=== PATIENT | female | born 1970 | race Caucasian/White ===

== ENCOUNTER 2016-12-30 10:13 | Emergency (ER) | payer MEDICAID ==
[2016-12-30] MEDS ORDERED: ONDANSETRON ODT 4 MG TABLET TL STA (12:24)
[2016-12-30] MEDS ORDERED: SULFAMETH/TRIMETH DS 800/160 MG TABLET PO STA (12:24)
[2016-12-30] MEDS ORDERED: HYDROcod/ACETAM 5/325 MG TABLET PO STA (12:24)
[2016-12-30] MEDS ORDERED: HYDROcod/ACETAM 5/325 MG TABLET ONE (12:30)
[2016-12-30] MEDS ORDERED: ONDANSETRON ODT 4 MG TABLET ONE (12:30)
[2016-12-30] MEDS ORDERED: SULFAMETH/TRIMETH DS 800/160 MG TABLET PO ONE (12:30)
== END 2016-12-30 13:35 | disposition home or self-care (01) ==
DX: N30.00 Acute cystitis without hematuria (principal); R10.33 Periumbilical pain; I10 Essential (primary) hypertension; F17.200 Nicotine dependence, unspecified, uncomplicated
CPT/HCPCS: 51798; 81001; 87086; 99283; A9270; Q0162

== ENCOUNTER 2017-10-21 11:22 | Emergency (ER) | payer MEDICAID ==
[2017-10-21] MEDS ORDERED: DEXAMETHASONE 10 MG/ML VIAL PO STA (12:43)
[2017-10-21] MEDS ORDERED: cefTRIAXone 1 GM VIAL IM STA (12:43)
[2017-10-21] MEDS ORDERED: LIDOCAINE 1% 2 ML VIAL SUBQ ONE (12:43)
[2017-10-21] MEDS ORDERED: CHERRY SYRUP 10 ML UDC PO ONE (12:56)
[2017-10-21] MEDS ORDERED: KETOROLAC 60 MG/2 ML VIAL IM STA (13:07)
--- NOTE | 2017-10-21 13:11 | ED Physician Documentation ---
PD HPI HEENT - Stated complaint Stated Complaint: LT EAR PX/NAUSEA - Chief complaint Chief Complaint: Heent - History obtained from History obtained from: Patient - History of Present Illness Timing - onset: How many weeks ago (3) Timing - duration: Weeks (3) Timing - details: Gradual onset, Still present, Waxing and waning Location: Left ear Improves: Nothing Worsens: Swalllowing Associated symptoms: Fever, Congestion, Rhinorrhea, Facial swelling, Headache, Cough Similar symptoms before: Has not had sx before Recently seen: Not recently seen - Additional information Additional information: 47-year-old female with a lifetime loss of hearing secondary to [place] measles has developed acute ear pain in the left ear. She has been having a respiratory infection for the past 3 weeks with cough and congestion this is suddenly worse over the past several days and she now has significant pain and abnormal hearing in the left ear. She is having a lot of extraneous noises and feels like there is something in her ear. She does feel like the left side of her face is swollen as well. Review of Systems Constitutional: reports: Fever, Chills, Myalgias, Sweats Eyes: denies: Decreased vision Ears: reports: Loss of hearing, Ear pain, Tinnitus/ringing Nose: reports: Rhinorrhea / runny nose, Congestion Throat: reports: Sore throat Cardiac: denies: Chest pain / pressure, Palpitations Respiratory: reports: Dyspnea, Cough GI: denies: Nausea, Vomiting : denies: Dysuria, Frequency Skin: denies: Rash Musculoskeletal: denies: Neck pain, Back pain, Extremity pain Neurologic: denies: Generalized weakness, Focal weakness, Numbness PD PAST MEDICAL HISTORY - Past Medical History Past Medical History: Yes Cardiovascular: Hypertension HEENT: Chronic hearing loss Psych: Depression - Past Surgical History 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 HEENT: Cataracts - Present Medications Home Medications: Ambulatory Orders Medication Instructions Recorded Confirmed Hydrocodone/Acetaminophen [Taylor 1 each PO Q6H PRN #12 tablet 12/30/16 5-325 Tablet] Ondansetron Odt [Zofran] 4 mg TL Q6H PRN #15 tablet 12/30/16 Phenazopyridine [Pyridium] 200 mg PO TID PRN #15 tablet 12/30/16 Sulfamethox/Trimeth 800/160 1 each PO BID #14 tablet 12/30/16 [Bactrim Ds 800/160] Venlafaxine [Effexor] 0 mg PO DAILY 12/30/16 12/30/16 hydroCHLOROthiazide 0 mg PO DAILY 12/30/16 12/30/16 [Hydrochlorothiazide] Azithromycin [Zithromax] 250 mg PO DAILY #6 tablet 10/21/17 HYDROcod/ACETAM 5/325 [Taylor 5/325] 1 - 2 ea PO Q6H PRN #15 tablet 10/21/17 - Allergies Allergies/Adverse Reactions: Allergies Allergy/AdvReac Type Severity Reaction Status Date / Time No Known Drug Allergies Allergy Verified 10/21/17 11:28 - Social History Does the pt smoke?: Yes Smoking Status: Current some day smoker Does the pt drink ETOH?: No Does the pt have substance abuse?: No - Immunizations Immunizations are current?: Yes PD ED PE NORMAL - Vitals Vital signs reviewed: Yes (hypertensive ) - General General: Alert and oriented X 3, Well developed/nourished, Other (The patient appears flush and appears to be in pain with head of housekeeping tone and flat affect. ) - HEENT HEENT: Atraumatic, PERRL, EOMI, Other (The left TM is markedly inflamed with distortion of the landmarks. The right has only slight central erythema over the umbo. pharynx is with swelling and erythema. 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, No motor deficit, No sensory deficit, Normal speech Eye Opening: Spontaneous Motor: Obeys Commands Verbal: Oriented GCS Score: 15 - Psych Psych: Normal mood, Normal affect Results - Vitals Vitals: Vital Signs - 24 hr 10/21/17 10/21/17 11:24 12:59 Temperature 36.3 C L Heart Rate 77 68 Respiratory 18 18 Rate Blood Pressure 187/86 H 188/101 H O2 Saturation 99 99 Oxygen O2 Source Room air PD MEDICAL DECISION MAKING - ED course Complexity details: considered differential, d/w patient ED course: 47-year-old female with existing hearing loss has left otitis media that appears significant and painful. She is administered dexamethasone 10 mg orally Rocephin 1 g IM and Toradol 60 mg IM. Departure - Departure Disposition: Home, Self Care Clinical Impression: Otitis media Qualifiers: Otitis media type: suppurative Chronicity: acute Laterality: bilateral Recurrence: not specified as recurrent Spontaneous tympanic membrane rupture: without spontaneous rupture Qualified Code(s): H66.003 - Acute suppurative otitis media without spontaneous rupture of ear drum, bilateral Condition: Stable Instructions: ED Otitis Media Acute Adult Follow-Up: EDDIE QUINTANILLA MD [Primary Care Provider] - Prescriptions: Azithromycin [Zithromax] 250 mg PO DAILY #6 tablet HYDROcod/ACETAM 5/325 [Taylor 5/325] 1 - 2 ea PO Q6H PRN #15 tablet PRN Reason: Pain
[2017-10-21 13:24] VITALS: BP 160/96
== END 2017-10-21 13:24 | disposition home or self-care (01) ==
LOC: ED 11:22
DX: H66.003 Acute suppurative otitis media without spontaneous rupture of ear drum, bilateral (principal); H91.90 Unspecified hearing loss, unspecified ear; I10 Essential (primary) hypertension; F17.200 Nicotine dependence, unspecified, uncomplicated
CPT/HCPCS: 96372; 99283; A9270

== ENCOUNTER 2017-11-13 12:22 | Emergency (ER) | payer OTHER, MEDICAID ==
[2017-11-13 12:37] VITALS: BP 148/90
[2017-11-13] MEDS ORDERED: LIDOCAINE 2% 10 ML MDV ONE (13:00)
[2017-11-13] MEDS ORDERED: TETANUS/DIPHTHERIA/PERTUSSIS 0.5 ML SYRINGE IM ONE (13:29)
--- NOTE | 2017-11-13 13:34 | ED Physician Documentation ---
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 The incident occurred about 2 hours prior to arrival. She was initially seen in the outpatient clinic , and was sent here for repair of her finger laceration. She is right-hand dominant. She is uncertain of her tetanus status. 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 HEENT: Cataracts - Present Medications Home Medications: Ambulatory Orders Medication Instructions Recorded Confirmed Venlafaxine [Effexor] 0 mg PO DAILY 12/30/16 11/13/17 hydroCHLOROthiazide 0 mg PO DAILY 12/30/16 11/13/17 [Hydrochlorothiazide] Albuterol 2 puffs PO PRN PRN 11/13/17 11/13/17 - Allergies Allergies/Adverse Reactions: Allergies Allergy/AdvReac Type Severity Reaction Status Date / Time No Known Drug Allergies Allergy Verified 11/13/17 12:54 - Social History Does the pt smoke?: Yes Smoking Status: Current every day smoker Does the pt drink ETOH?: No Does the pt have substance abuse?: No - Immunizations Immunizations: TDAP >10years/unknown PD ED PE NORMAL - Vitals Vital signs reviewed: Yes (Initially hypertensive.) - General General: Alert and oriented X 3, Well developed/nourished - HEENT HEENT: Atraumatic - Respiratory Respiratory: No respiratory distress - Derm Derm: No rash - Extremities Extremities: Other (There is a 1.5 cm laceration on the volar aspect of the left index finger, distal to the DIP joint. Distal neurovascular is intact.) - Neuro Neuro: Alert and oriented X 3, No motor deficit, No sensory deficit Results - Vitals Vitals: Vital Signs - 24 hr 11/13/17 12:34 Temperature 36.4 C L Heart Rate 78 Respiratory 18 Rate Blood Pressure 148/90 H O2 Saturation 96 Oxygen O2 Source Room air Procedures - Laceration (location) Left index finger Length in cm: 1.5 Wound type: Linear Neurovascular status: Sensory intact, Motor intact, Vascular intact Anesthesia: Lidocaine 2% (Digital block) Wound Preparation: Hibiclens, Irrigated copiously NS Skin layer closure: Nylon, Running, Size #-0 - enter number (5), Sutures - enter # (3) Other: Patient tolerated well, No complications, Neurovascular intact, Dressing applied, Tetanus booster given Complexity: Simple PD MEDICAL DECISION MAKING - ED course Complexity details: considered differential, d/w patient ED course: The patient's presentation is significant for laceration to the volar tip of her index finger. There is no clinical evidence of bony abnormality, or involvement of the joint. Treatment in the emergency department included local anesthetic using 2% lidocaine digital block. The wound was thoroughly irrigated and was repaired with 5-0 nylon simple sutures. Antibiotic ointment and gauze dressing was applied. I discussed with her the expected course of healing, typical wound care, timing for suture removal, as well as potentially worrisome signs or symptoms that should prompt reevaluation in the emergency department. A labor and industries form was completed. Departure - Departure Disposition: 01 Home, Self Care Clinical Impression: Finger laceration Qualifiers: Encounter type: initial encounter Finger: index finger Damage to nail status: without damage Foreign body presence: without foreign body Laterality: left Qualified Code(s): S61.211A - Laceration without foreign body of left index finger without damage to nail, initial encounter Condition: Stable Instructions: ED Laceration Hand Follow-Up: EDDIE QUINTANILLA MD [Primary Care Provider] - Comments: Keep the wound clean, and apply antibiotic ointment daily. You can use Tylenol or ibuprofen if needed for discomfort. Follow-up for suture removal in 10 days. Return to the emergency department if you develop any sign of infection, or otherwise worsening symptoms. Discharge Date/Time: 11/13/17 13:43
== END 2017-11-13 13:43 | disposition home or self-care (01) ==
LOC: ED 12:22
DX: S61.211A Laceration without foreign body of left index finger without damage to nail, initial encounter (principal); W26.8XXA Contact with other sharp object(s), not elsewhere classified, initial encounter; Y93.E9 Activity, other interior property and clothing maintenance; Y92.59 Other trade areas as the place of occurrence of the external cause; Y99.0 Civilian activity done for income or pay; Z23 Encounter for immunization; F17.200 Nicotine dependence, unspecified, uncomplicated
CPT/HCPCS: 1040M; 12001; 90471; 90715; 99282; 99283

== ENCOUNTER 2018-05-02 09:08 | Outpatient (CLI) | payer MEDICAID | END 2018-05-02 09:09 | disposition home or self-care (01) | LOC: DI 09:08 | PROVIDERS: ATTEND Internal Medicine | DX: P35.0 Congenital rubella syndrome (principal); R01.1 Cardiac murmur, unspecified; I27.20 Pulmonary hypertension, unspecified; I35.8 Other nonrheumatic aortic valve disorders | CPT/HCPCS: 93306 ==

== ENCOUNTER 2018-05-14 19:53 | Outpatient (CLI) | payer MEDICAID | END 2018-05-14 19:54 | disposition critical access hospital (66) | LOC: EMS 19:53 | PROVIDERS: ATTEND Surgery | DX: R53.1 Weakness (principal); R06.02 Shortness of breath | CPT/HCPCS: A0425; A0429; A0999 ==

== ENCOUNTER 2018-05-14 20:32 | Emergency (ER) | payer MEDICAID ==
--- NOTE | 2018-05-14 23:30 | ED Physician Documentation ---
PD HPI DYSPNEA - Stated complaint Stated Complaint: SOA - Chief complaint Chief Complaint: Resp - History obtained from History obtained from: Patient, Family - History of Present Illness Timing - onset: How many weeks ago (1-2) Timing - details: Still present, Waxing and waning Improved by: Rest Worsened by: Exertion Associated symptoms: Chest pain / discomfort. No: Fever Recently seen: Clinic - Additional information Additional information: c/o dyspnea, dizziness, generalized weakness with walking, BLE swelling, chest discomfort, a lot of belching. had echo last week, does not know results.m Review of Systems Constitutional: reports: Fatigue. denies: Fever, Chills, Sweats Ears: reports: Reviewed and negative Nose: reports: Reviewed and negative Throat: reports: Reviewed and negative Cardiac: reports: Chest pain / pressure, Pedal edema. denies: Palpitations, Calf pain Respiratory: reports: Dyspnea. 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 HEENT: Cataracts - Present Medications Home Medications: Ambulatory Orders Medication Instructions Recorded Confirmed Venlafaxine [Effexor] 0 mg PO DAILY 12/30/16 05/14/18 hydroCHLOROthiazide 0 mg PO DAILY 12/30/16 05/14/18 [Hydrochlorothiazide] Albuterol 2 puffs PO PRN PRN 11/13/17 05/14/18 Doxepin HCl 300 mg PO QPM 05/14/18 05/14/18 Gabapentin 1 cap PO QPM 05/14/18 05/14/18 Methadone HCl 1 tab PO DAILY 05/14/18 05/14/18 - Allergies Allergies/Adverse Reactions: Allergies Allergy/AdvReac Type Severity Reaction Status Date / Time No Known Drug Allergies Allergy Verified 05/14/18 20:43 - Social History Does the pt smoke?: Yes Smoking Status: Current every day smoker Does the pt drink ETOH?: No Does the pt have substance abuse?: No - Immunizations Immunizations are current?: Yes Immunizations: TDAP >10years/unknown - POLST Patient has POLST: No PD ED PE NORMAL - Vitals Vital signs reviewed: Yes - General General: Alert and oriented X 3, No acute distress, Well developed/nourished - Neck Neck: Supple, no meningeal sign - Cardiac Cardiac: RRR, No murmur - Respiratory Respiratory: No respiratory distress, Clear bilaterally - Abdomen Abdomen: Soft, Non tender, Non distended - Back Back: No CVA TTP - Derm Derm: Normal color, Warm and dry - Neuro Neuro: Alert and oriented X 3 PD ED PE EXPANDED - Extremities Extremities: Pedal edema bilateral Results - Vitals Vitals: Oxygen O2 Source Room air - EKG (time done) No standard instances Rate: Rate (enter#) (64) Rhythm: NSR [place]: LAD Intervals: Normal NE QRS: Normal Ischemia: Normal ST segments - Labs Labs: Laboratory Tests 05/14/18 05/14/18 05/14/18 00:59 00:59 00:59 WBC 4.9 RBC 4.12 L Hgb 12.9 Hct 37.8 MCV 91.6 MCH 31.3 H MCHC 34.1 RDW 13.5 Plt Count 127 L MPV 11.5 H Neut # (Auto) 3.0 Lymph # (Auto) 1.5 [place] # (Auto) 0.3 Eos # (Auto) 0.1 Baso # (Auto) 0.1 Absolute Nucleated RBC 0.00 Nucleated RBC % 0.0 Sodium 139 Potassium 3.7 Chloride 105 Carbon Dioxide 28 Anion Gap 6.0 BUN 19 Creatinine 0.7 Estimated GFR (MDRD) 89 Glucose 117 H Calcium 9.1 Total Bilirubin 0.8 AST 20 ALT 22 Alkaline Phosphatase 68 Troponin I < 0.04 B-Natriuretic Peptide Total Protein 7.0 Albumin 3.7 Globulin 3.3 Albumin/Globulin Ratio 1.1 Lipase 30 Urine Color Urine Clarity Urine pH Ur Specific Orange Urine Protein Urine Glucose (UA) Urine Ketones Urine Occult Blood Urine Nitrite Urine Bilirubin Urine Urobilinogen Ur Leukocyte Esterase Ur Microscopic Review Urine Culture Comments 05/14/18 05/14/18 00:59 23:50 WBC RBC Hgb Hct MCV MCH MCHC RDW Plt Count MPV Neut # (Auto) Lymph # (Auto) [place] # (Auto) Eos # (Auto) Baso # (Auto) Absolute Nucleated RBC Nucleated RBC % Sodium Potassium Chloride Carbon Dioxide Anion Gap BUN Creatinine Estimated GFR (MDRD) Glucose Calcium Total Bilirubin AST ALT Alkaline Phosphatase Troponin I B-Natriuretic Peptide 162 H Total Protein Albumin Globulin Albumin/Globulin Ratio Lipase Urine Color YELLOW Urine Clarity CLEAR Urine pH 7.5 Ur Specific Orange 1.020 Urine Protein NEGATIVE Urine Glucose (UA) NEGATIVE Urine Ketones NEGATIVE Urine Occult Blood NEGATIVE Urine Nitrite NEGATIVE Urine Bilirubin NEGATIVE Urine Urobilinogen 0.2 (NORMAL) Ur Leukocyte Esterase NEGATIVE Ur Microscopic Review NOT INDICATED Urine Culture Comments NOT INDICATED - Rads (name of study) chest xray Radiology: Prelim report reviewed, See rad report PD MEDICAL DECISION MAKING - ED course Complexity details: reviewed results, re-evaluated patient, considered differential, d/w patient - Sepsis Event Vital Signs: Oxygen O2 Source Room air Departure - Departure Disposition: 01 Home, Self Care Clinical Impression: Dyspnea, Peripheral edema Condition: Good Instructions: Edema Pulmonary, ED Edema Legs Bilateral Follow-Up: EDDIE QUINTANILLA MD [Primary Care Provider] - Discharge Date/Time: 05/15/18 03:55
[2018-05-15 00:02] LABS: BILIRUBIN,URINE NEGATIVE (NEGATIVE); GLUCOSE, URINE (UA) NEGATIVE (NEGATIVE); KETONES,URINE (UA) NEGATIVE (NEGATIVE); LEUKOCYTE ESTERASE, URINE NEGATIVE (NEGATIVE); NITRITE,URINE NEGATIVE (NEGATIVE); OCCULT BLOOD,URINE NEGATIVE (NEGATIVE); PH,URINE 7.5 PH (5.0-7.5); PROTEIN,URINE NEGATIVE (NEGATIVE); UROBILINOGEN,URINE 0.2 (NORMAL) E.U./dL (NORMAL)
[2018-05-15 00:06] LABS: CLARITY,URINE CLEAR (CLEAR)
[2018-05-15 00:13] LABS: BASOPHILS # (AUTO) 0.1 10^3/uL (0.0-0.1); EOSINOPHILS # (AUTO) 0.1 10^3/uL (0.0-0.7); EOSINOPHILS % (AUTO) 1.4 %; HGB - HEMOGLOBIN 12.9 g/dL (12.0-16.0); LYMPHOCYTES # (AUTO) 1.5 10^3/uL (1.5-3.5); LYMPHOCYTES % (AUTO) 30.5 %; MEAN CORPUSCULAR HEMOGLOBIN 31.3 pg (27.0-31.0); MEAN CORPUSCULAR HGB CONC 34.1 g/dL (32.0-36.0); MEAN CORPUSCULAR VOLUME 91.6 fL (81.0-99.0); MEAN PLATELET VOLUME 11.5 fL (7.9-10.8); MONOCYTES # (AUTO) 0.3 10^3/uL (0.0-1.0); MONOCYTES % (AUTO) 6.3 %; NEUTROPHILS % (AUTO) 60.8 %; PLT - PLATELET COUNT 127 10^3/uL (130-450); RED BLOOD COUNT 4.12 10^6/uL (4.20-5.40); RED CELL DISTRIBUTION WIDTH 13.5 % (12.0-15.0); WHITE BLOOD COUNT 4.9 x10^3/uL (4.8-10.8)
[2018-05-15 00:23] LABS: ALBUMIN 3.7 g/dL (3.2-5.5); ALBUMIN/GLOBULIN RATIO 1.1 (1.0-2.2); BILIRUBIN,TOTAL 0.8 mg/dL (0.2-1.0); CALCIUM 9.1 mg/dL (8.5-10.3); CREATININE 0.7 mg/dL (0.4-1.0)
--- NOTE | 2018-05-15 00:39 | XRAY Report ---
Reason: dyspnea Procedure Date: 05/15/2018 Accession Number: [id number] / [id number] Procedure: XR - Chest 2 View X-Ray CPT Code: 69952 FULL RESULT: EXAM: CHEST RADIOGRAPHY EXAM DATE: 05/15/2018 12:29 AM. CLINICAL HISTORY: Dyspnea. COMPARISON: None. TECHNIQUE: 2 views. FINDINGS: Lungs/Pleura: Diffuse mild interstitial opacities. Possible trace effusions. No gross pneumothorax. Mediastinum: Mild cardiomegaly. No mediastinal shift. Other: Post median sternotomy. IMPRESSION: Suspect minimal CHF. RADIA
[2018-05-15] MEDS ORDERED: FUROSEMIDE 40 MG/4 ML VIAL IVP STA (03:36)
[2018-05-15 03:47] VITALS: BP 123/82
== END 2018-05-15 03:55 | disposition home or self-care (01) ==
LOC: ED 20:32
DX: R06.00 Dyspnea, unspecified (principal); R60.9 Edema, unspecified; I10 Essential (primary) hypertension; F17.200 Nicotine dependence, unspecified, uncomplicated
CPT/HCPCS: 36415; 71046; 80053; 81001; 81003; 83690; 83880; 84484; 85025; 87086; 93005; 96374; 99282; 99284

== ENCOUNTER 2018-11-11 09:18 | Outpatient (CLI) | payer MEDICAID ==
--- NOTE | 2018-11-11 12:26 | Ultrasound Report ---
Reason: RECURRENT VENTRAL INCISIONAL HERNIA Procedure Date: 11/11/2018 Accession Number: [id number] / [id number] Procedure: US - Abdomen Limited CPT Code: FULL RESULT: EXAM: ABDOMEN ULTRASOUND LIMITED, RUQ EXAM DATE: 11/11/2018 09:34 AM. CLINICAL HISTORY: Recurrent ventral incisional hernia. COMPARISON: None. TECHNIQUE: Real-time scanning was performed with static images obtained. FINDINGS: Targeted ultrasound was performed in the region of the umbilicus. There is a narrow necked (8 x 11 mm at the neck), fat-containing umbilical hernia measuring less than 2 cm, nonreducible. Targeted sonography of the superior and lateral abdominal wall at site of patient complaint shows only normal tissues. No additional hernia appreciated. IMPRESSION: Small fat-containing periumbilical hernia. No additional hernia appreciated at site of the patient complaint. RADIA
== END 2018-11-11 09:19 | disposition home or self-care (01) ==
LOC: DI 09:18
PROVIDERS: ATTEND Internal Medicine
DX: K42.9 Umbilical hernia without obstruction or gangrene (principal)
CPT/HCPCS: 76705

== ENCOUNTER 2020-02-29 10:03 | Emergency (ER) | payer MEDICAID ==
--- NOTE | 2020-02-29 11:37 | XRAY Report ---
PROCEDURE: Ribs 2 View RT INDICATIONS: injury to right ribs TECHNIQUE: 2 views of the right ribs were acquired, along with a single view chest. COMPARISON: Chest x-ray 05/15/2018 FINDINGS: Surgical changes and devices: Median sternotomy wires and cholecystectomy clips. Bones and chest wall: No fractures or dislocations. No suspicious bony lesions. Overlying soft tis sues appear unremarkable. Lungs and pleura: No pleural effusions or pneumothorax. Lungs appear clear. Mediastinum: Mediastinal contours appear normal. Heart size is normal. IMPRESSION: No acute cardiopulmonary disease process. No displaced rib fracture. Reviewed by: Yeimi Miller MD, PhD on 02/29/2020 11:36 AM PDT Approved by: Yeimi Miller MD, PhD on 02/29/2020 11:36 AM PDT Station ID: [id number]
[2020-02-29] MEDS ORDERED: oxyCODONE 5 MG TABLET PO STA (11:41)
--- NOTE | 2020-02-29 11:56 | ED Physician Documentation ---
History of Present Illness - Stated complaint Stated Complaint: R SIDE/BACK PX GLF - Chief complaint Chief Complaint: Trauma Ch/Bk - History obtained from History obtained from: Patient - History of Present Illness Timing: Yesterday Pain level max: 8 Pain level now: 8 - Additonal information Additional information: 49-year-old female presents to the emergency department after a fall in a parking lot yesterday. She landed on her right ribs. Complains of pain, worse with movement and better with rest. She states it feels sharp. She also complains of pain in her low back. Worse with movement and better with rest. No loss of bowel or bladder control. No numbness or tingling. Has not taken anything for pain. No head injury. No loss of consciousness. No vomiting. 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 HEENT: Cataracts - Present Medications Home Medications: Ambulatory Orders Medication Instructions Recorded Confirmed Venlafaxine [Effexor] 0 mg PO DAILY 12/30/16 05/14/18 hydroCHLOROthiazide 0 mg PO DAILY 12/30/16 05/14/18 [Hydrochlorothiazide] Albuterol 2 puffs PO PRN PRN 11/13/17 05/14/18 Doxepin HCl 300 mg PO QPM 05/14/18 05/14/18 Gabapentin 1 cap PO QPM 05/14/18 05/14/18 Methadone HCl 1 tab PO DAILY 05/14/18 05/14/18 Oxycodone HCl 5 mg PO Q6H PRN #14 tablet 02/29/20 - Allergies Allergies/Adverse Reactions: Allergies Allergy/AdvReac Type Severity Reaction Status Date / Time acetaminophen AdvReac Unknown Verified 02/29/20 10:23 [From Tylenol-Codeine #3] codeine AdvReac Unknown Verified 02/29/20 10:23 [From Tylenol-Codeine #3] naproxen AdvReac Unknown Verified 02/29/20 10:23 - Social History Does the pt smoke?: Yes Smoking Status: Current every day smoker Does the pt drink ETOH?: No Does the pt have substance abuse?: No - Immunizations Immunizations are current?: Yes Immunizations: TDAP >10years/unknown - POLST Patient has POLST: No PD ED PE NORMAL - Vitals Vital signs reviewed: Yes - General General: Alert and oriented X 3, No acute distress - HEENT HEENT: Moist mucous membranes - Neck Neck: Supple, no meningeal sign - Cardiac Cardiac: RRR - Respiratory Respiratory: No respiratory distress, Clear bilaterally - Abdomen Abdomen: Soft, Non tender, Non distended - Back Back: Other (No step-off or deformity. 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 Normal great toe extension bilaterally. no saddle anesthesia) - Psych Psych: Normal mood, Normal affect - Free text exam Free text exam: Tender palpation over the right lateral ribs, midaxillary line. No crepitus. No ecchymosis. No abrasions Results - Vitals Vitals: Vital Signs - 24 hr 02/29/20 02/29/20 10:23 12:27 Temperature 36.5 C Heart Rate 78 74 Respiratory 18 16 Rate Blood Pressure 178/100 H 174/102 H O2 Saturation 96 98 Oxygen O2 Source Room air - Rads (name of study) R rib xray Radiology: Prelim report reviewed, EMP read contemporaneously, See rad report (No acute findings) Lumbar spine x-ray Radiology: Prelim report reviewed, EMP read contemporaneously, See rad report (No acute findings) PD MEDICAL DECISION MAKING - ED course Complexity details: reviewed results, re-evaluated patient, considered differential, d/w patient ED course: No acute findings on x-ray. Pain well controlled. Will prescribe pain medication for home. We will have her follow-up with her doctor for further care. Patient counseled regarding signs and symptoms for which I believe and urgent re-evaluation would be necessary. Patient with good understanding of and agreement to plan and is comfortable going home at this time This document was made in part using voice recognition software. While efforts are made to proofread this document, sound alike and grammatical errors may occur. Ambulating without any difficulty in the emergency department. Departure - Departure Disposition: 01 Home, Self Care Clinical Impression: Contusion of rib on right side Qualifiers: Encounter type: initial encounter Qualified Code(s): S20.211A - Contusion of right front wall of thorax, initial encounter Back strain Qualifiers: Encounter type: initial encounter Qualified Code(s): S39.012A - Strain of muscle, fascia and tendon of lower back, initial encounter Condition: Good Instructions: ED Low Back Pain Injury, ED Contusion Chest Wall Follow-Up: your,doctor in 1week [Other] Prescriptions: Oxycodone HCl 5 mg PO Q6H PRN #14 tablet PRN Reason: pain Comments: Your x-rays do not show any acute abnormalities today. Follow-up with your doctor for further care. Return if you worsen. Do not drink alcohol or drive while on narcotic pain medicine. Note that many narcotic pain relievers also contain tylenol/acetaminophen. Please ensure that your total dose of acetaminophen from all sources does not exceed 3 grams (3000mg) per day. You may constipated on this medication, take a stool softener such as "Colace" twice a day while you are on it. Also recommend a [id number] laxative such as senna or MiraLAX any day that you do not have a bowel movement. If you received narcotic pain medication in the emergency department, do not drive or operate machinery for the next 24 hours. Forms: Activity restrictions Discharge Date/Time: 02/29/20 12:31
--- NOTE | 2020-02-29 12:14 | XRAY Report ---
PROCEDURE: Lumbar Spine 2 View INDICATIONS: fall, back pain TECHNIQUE: 2 views of the lumbar spine were acquired. COMPARISON: None. FINDINGS: Bones: 5 [id number] vertebrae are present. There is trace L2-L3 and L3-L4 retrolisthesis. No v ertebral body compression fractures. No suspicious bony lesions. Mild L1-L2, L2-L3 and L3-L4 degener ative disc changes. Mild L4-L5 and L5-S1 facet arthropathy. Soft tissues: Overlying bowel gas pattern is normal. No suspicious soft tissue calcifications. IMPRESSION: 1. No fracture. No acute osseous lesion. If there is continued clinical concern for pathology, then M RI should be considered for further evaluation. 2. Multilevel degenerative disease. 3. Multilevel facet arthropathy. Reviewed by: Yeimi Miller MD, PhD on 02/29/2020 12:13 PM PDT Approved by: Yeimi Miller MD, PhD on 02/29/2020 12:13 PM PDT Station ID: [id number]
[2020-02-29 12:28] VITALS: BP 174/102
== END 2020-02-29 12:31 | disposition home or self-care (01) ==
LOC: ED 10:03
DX: S20.211A Contusion of right front wall of thorax, initial encounter (principal); S39.012A Strain of muscle, fascia and tendon of lower back, initial encounter; W01.0XXA Fall on same level from slipping, tripping and stumbling without subsequent striking against object, initial encounter; Y92.481 Parking lot as the place of occurrence of the external cause; I10 Essential (primary) hypertension; F17.200 Nicotine dependence, unspecified, uncomplicated
CPT/HCPCS: 71100; 72100; 99283; 99284; A9270

== ENCOUNTER 2020-09-05 07:28 | Day surgery (SDC) | payer MEDICAID ==
[2020-09-05] MEDS ORDERED: LACTATED RINGERS 1,000 ML IV ONE ×2 (07:49→09:50)
[2020-09-05] MEDS ORDERED: fentaNYL 250 MCG/5 ML VIAL ONE (08:24)
[2020-09-05] MEDS ORDERED: MIDAZOLAM 2 MG/2 ML VIAL ONE ×2 (08:24→09:33)
--- NOTE | 2020-09-05 09:08 | SURGERY HX AND PHYSICAL(T) ---
Surgical History & Physical - Chief Complaint/HPI Chief Complaint: Age-appropriate screening colonoscopy History of Present Illness: 50-year-old female with history of colonoscopy in her third decade of life who presents for age-appropriate screening. Patient is adopted so there is no knowledge of family history. She reports having been traumatized by her early endoscopic evaluation having awoken during her evaluation and ultimately necessitating a barium enema to follow. She reports a personal history of irritable bowel syndrome, favoring constipation. Occasional bleeding per rectum with reported hemorrhoids and discomfort with bowel movements. Denies incontinence. 2 live births. Reports obstetrical laceration. Prior hysterectomy. Prior cholecystectomy. - PMH/PSH/Social Hx Does the pt have a hx of MRSA?: No Eyes, Ears, Nose, Throat: Chronic vision loss, Chronic hearing loss, Other Cardiovascular: Other Respiratory: Asthma Skin: None Endocrine/Autoimmune: None Gastrointestinal: GERD, Hemorrhoids Urinary: None Musculoskeletal: Osteoarthritis, Fibromyalgia, Osteoporosis, Other Psychiatric: Depression General: Cholecystectomy, Colonoscopy Orthopedic: Other Cardiothoracic: Other Eyes Ears Nose Throat (EENT): Cataracts Smoking Status: Current every day smoker Does the pt drink ETOH?: No Does the pt have substance abuse?: No - Family Hx Family Hx: Other (Unknown secondary to the patient's having been adopted) - Home Meds and Allergies Home Medications: Albuterol 2 puffs PO PRN PRN 11/13/17 Losartan Potassium [Cozaar] 100 mg PO DAILY 09/04/20 Pregabalin [Lyrica] 150 mg PO TID 09/04/20 Tizanidine HCl [Zanaflex] 4 mg PO TID 09/04/20 Allergies/Adverse Reactions: Allergies Allergy/AdvReac Type Severity Reaction Status Date / Time Penicillins Allergy Rash Verified 09/04/20 16:14 acetaminophen AdvReac Unknown Verified 02/29/20 10:23 [From Tylenol-Codeine #3] codeine AdvReac Unknown Verified 02/29/20 10:23 [From Tylenol-Codeine #3] naproxen AdvReac Unknown Verified 02/29/20 10:23 - Review of Systems Constitutional: Other (Negative except as reported above across 10 review of systems) - Vital Signs Heart Rate: 70 Blood Pressure: 113/75 Temperature: 36.2 C Respiratory Rate: 16 O2 Saturation: 96 Weight (kg): 83.3 kg Height: 1.55 m - Physical Exam General Appearance: positive: No acute distress, Alert Eyes Bilatera: positive: Normal inspection, PERRL, Other (Strabismus) ENT: positive: ENT inspection nml Neck: positive: Nml inspection Respiratory: positive: Chest non-tender, No respiratory distress, Breath sounds nml. negative: Wheezes, Rales, Rhonchi Cardiovascular: positive: Regular rate & rhythm Abdomen: positive: Non-tender, No distention. negative: Tenderness, Guarding, Rebound Extremities: positive: Non-tender, Full ROM, Nml appearance Neurologic/Psychiatric: positive: Oriented x3, CN's nml (2-12), Motor nml, Sensation nml, Mood/affect nml - Patient Review Patient Review: Problems were reviewed with the patient during this visit. Medications were reviewed with the patient during this visit. Allergies were reviewed this patient during this visit. Pertinent Tests Reviewed: All pertitent test for this patient were reviewed. - Assessment & Plan Assessment and Plan: Colonoscopy indicated for screening. Symptoms are as follows none. Risks and benefits discussed at length. Informed consent obtained. Risks include but are not limited to, bleeding, infection, perforation, missed lesions, injury to local structures, need for further surgeries, and the periprocedural/sedation risks of heart attack stroke and . Patient was advised if any concerning areas were noted these would be sampled if too big to resect or performed for excision if within reasonable limits for en doscopic intervention. Please note that voice recognition software was used to transcribe this note and inadvertent errors might persist in spite of review and editing. I am obliged to you for your attention. I am thankful to you for allowing me to participate with you in this care of this patient.
[2020-09-05 10:20] VITALS: BP 110/52
== END 2020-09-05 07:29 | disposition home or self-care (01) ==
LOC: SDS 07:28
PROVIDERS: ATTEND Surgery
DX: Z12.11 Encounter for screening for malignant neoplasm of colon (principal); K64.8 Other hemorrhoids; I10 Essential (primary) hypertension; K21.9 Gastro-esophageal reflux disease without esophagitis; F43.10 Post-traumatic stress disorder, unspecified; G62.9 Polyneuropathy, unspecified; F17.200 Nicotine dependence, unspecified, uncomplicated; H50.9 Unspecified strabismus; H91.90 Unspecified hearing loss, unspecified ear; J45.909 Unspecified asthma, uncomplicated; M79.7 Fibromyalgia; M81.0 Age-related osteoporosis without current pathological fracture; Z79.51 Long term (current) use of inhaled steroids; Z79.899 Other long term (current) drug therapy
CPT/HCPCS: 45378; J3010; J7120

== ENCOUNTER 2020-12-09 12:31 | Emergency (ER) | payer MEDICAID ==
[2020-12-09] MEDS ORDERED: HYDROmorphone 1 MG/ML CARPUJECT IVP STA (13:16)
--- NOTE | 2020-12-09 13:23 | ED Physician Documentation ---
History of Present Illness - Stated complaint Stated Complaint: FACE PX - Chief complaint Chief Complaint: Heent - Additonal information Additional information: 50-year-old female who has a history of hypertension as well as left eye blindness presents to the emergency department for evaluation of left-sided facial pain and swelling. She reports that 2 days ago her left upper molar was extracted by her primary dentist in [place]. However she reports that the procedure was complicated by a lot of bleeding as well as infection. She was placed on clindamycin. She did follow-up with her dentist yesterday and he was concerned about worsening infection and told the patient that if she had increased swelling or pain to go immediately to the ER. She is now out of hydrocodone which she was using to control her pain. She has some mild trismus on the left side but no fevers or dysphonia. She is swallowing normally tolerating her oral secretions. Review of Systems Constitutional: denies: Fever, Chills Eyes: reports: Loss of vision (Left eye) Ears: denies: Loss of hearing, Ear pain Nose: reports: Reviewed and negative Throat: reports: Dental pain / toothache (Left upper jaw), Other (Left-sided facial swelling and ecchymosis) Cardiac: denies: Chest pain / pressure, Palpitations Respiratory: denies: Dyspnea, Cough GI: reports: Reviewed and negative : reports: Reviewed and negative Skin: reports: Other (Bruising left jaw) Musculoskeletal: reports: Neck pain PD PAST MEDICAL HISTORY - Past Medical History Cardiovascular: Other Respiratory: Asthma Endocrine/Autoimmune: None GI: GERD, Hemorrhoids : None HEENT: Chronic vision loss, Chronic hearing loss, Other Psych: Depression Musculoskeletal: Osteoarthritis, Fibromyalgia, Osteoporosis, Other Derm: None - Past Surgical History Past Surgical History: Yes General: Cholecystectomy, Colonoscopy 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, Other Cardiovascular: Other HEENT: Cataracts - Present Medications Home Medications: Ambulatory Orders Medication Instructions Recorded Confirmed Albuterol 2 puffs PO PRN PRN 11/13/17 12/09/20 Losartan Potassium [Cozaar] 100 mg PO DAILY 09/04/20 12/09/20 Pregabalin [Lyrica] 150 mg PO TID PRN 09/04/20 12/09/20 Tizanidine HCl [Zanaflex] 4 mg PO TID 09/04/20 12/09/20 Chlorhexidine Gluconate [Peridex] 15 ml MM 12/09/20 HYDROcod/ACETAM 5/325 [[place] 5/325] 1 - 2 tablet PO Q6H PRN #14 tablet 12/09/20 clindamycin HCL [Clindamycin HCl] 300 mg PO Q6H 12/09/20 12/09/20 oxyCODONE/ACET 5/325 [Percocet 5 1 each PO Q4-6H 12/09/20 12/09/20 mg/325 mg] - Allergies Allergies/Adverse Reactions: Allergies Allergy/AdvReac Type Severity Reaction Status Date / Time Penicillins Allergy Rash Verified 12/09/20 12:44 acetaminophen AdvReac Unknown Verified 12/09/20 12:44 [From Tylenol-Codeine #3] codeine AdvReac Unknown Verified 12/09/20 12:44 [From Tylenol-Codeine #3] naproxen AdvReac Unknown Verified 12/09/20 12:44 - Social History Does the pt smoke?: Yes Smoking Status: Current every day smoker Does the pt drink ETOH?: No Does the pt have substance abuse?: No - Immunizations Immunizations are current?: Yes Immunizations: TDAP >10years/unknown - POLST Patient has POLST: No PD ED PE EXPANDED - General General: Alert, In Pain - HEENT HEENT: Other (Significant swelling left side of the face with mild erythema and ecchymosis at the angle of the mandible. Mild trismus on the left side of the posterior oropharynx is relatively clear. Left upper molar extraction site is packed with material.). No: Dentition normal - Neck Neck: Supple w/out meningeal sx, Adenopathy (Mild left submandibular and anterior cervical lymphadenopathy tender to palpation) - Cardiac Cardiac: Regular Rate, Radial strong equal, Pedal strong equal, Cap refill < 2 sec - Respiratory Respiratory: Clear to ausultation chloé. No: Distress, Labored - Abdomen Abdomen: Hyperactive BS. No: Tender to palpation - Neuro Neuro: Alert and Oriented X 3, Normal gait, Normal speech, Other (Left eye deviates laterally. Blind in this eye. Right eye briskly reactive to light.) - GCS Eye Opening: Spontaneous Motor: Obeys Commands Verbal: Oriented Total: 15 Results - Vitals Vitals: Vital Signs - 24 hr 12/09/20 12:44 Temperature 36.7 C Heart Rate 76 Respiratory 18 Rate Blood Pressure 173/100 H O2 Saturation 98 Oxygen O2 Source Room air - Labs Labs: Laboratory Tests 12/09/20 12/09/20 13:23 13:23 WBC 7.0 RBC 4.95 Hgb 15.3 Hct 44.9 MCV 90.7 MCH 30.9 MCHC 34.1 RDW 12.1 Plt Count 184 MPV 12.9 H Neut # (Auto) 4.6 Lymph # (Auto) 1.8 [place] # (Auto) 0.5 Eos # (Auto) 0.1 Baso # (Auto) 0.0 Absolute Nucleated RBC 0.00 Nucleated RBC % 0.0 Sodium 137 Potassium 3.9 Chloride 102 Carbon Dioxide 26 Anion Gap 9.0 BUN 17 Creatinine 0.6 Estimated GFR (MDRD) 105 Glucose 116 H Calcium 9.9 Total Bilirubin 1.4 H AST 20 ALT 24 Alkaline Phosphatase 74 Total Protein 8.2 Albumin 4.6 Globulin 3.6 Albumin/Globulin Ratio 1.3 Lipase 28 - Rads (name of study) CT max/fac Radiology: Final report received (Soft tissue swelling and inflammation adjacent to expected left maxillary molar suggestive of an infectious or inflammatory process. No focal fluid collection within the limits of this noncontrast exam.) PD MEDICAL DECISION MAKING - ED course Complexity details: reviewed results, re-evaluated patient, considered differential, d/w patient ED course: 50-year-old female presents to the emergency department for evaluation of left- sided facial swelling and increasing pain after left upper molar extraction 2 days ago. She currently is on clindamycin appropriately. She has not had fevers however she has run out of her hydrocodone and ibuprofen is not working to control the pain. On the advice of her dentist she presents to the emergency department. She does have mild trismus on the left side but no fevers, dysphonia or difficulty tolerating oral secretions. Screening labs show no leukocytosis. Noncontrast maxillofacial CT showed soft tissue swelling and inflammation but no obvious fluid collection. The patient by her own report ports states that the swelling is not increased. Therefore I suspect that most of the pain is simply due to the inflammatory process. I will write a prescription for some additional [place]. She will follow up with her dentist on Friday emergent. Return precautions were discussed Departure - Departure Disposition: 01 Home, Self Care Clinical Impression: Facial swelling, Tooth ache Condition: Stable Record reviewed to determine appropriate education?: Yes Prescriptions: HYDROcod/ACETAM 5/325 [[place] 5/325] 1 - 2 tablet PO Q6H PRN #14 tablet PRN Reason: Pain Comments: Marjan you were seen for facial pain and swelling after recent dental extraction. The CT shows inflammation as we would expect but no fluid collections that would suggest an abscess formation. The antibiotic that you are taking clindamycin is appropriate and I recommend that you continue to take that. I would like you to also continue placing a cool compress on your face for 10 minutes 3 times a day. I have prescribed a limited amount of hydrocodone or Vicodin to help with severe pain at home. Continue to alternate this with Tylenol. Use this cautiously it makes you impaired to drive and will cause constipation. Therefore increase your water intake and if you do not have a bowel movement in 2 to 3 days take [id number] MiraLAX. The swelling in your backside is called a pilonidal cyst. A warm compress on this for 10 minutes 3 times a day will help it continue to drain. The antibiotic you are already taking for your mouth is sufficient to treat this. However in the long-term these do tend to recur therefore I recommend that you follow-up with your primary care provider to obtain a referral to a surgeon in order to have this gland removed. Please return to the emergency department if you develop any fevers, cannot swallow or speak normally or you have increased facial swelling.
[2020-12-09 13:41] LABS: BASOPHILS % (AUTO) 0.4 %; EOSINOPHILS # (AUTO) 0.1 10^3/uL (0.0-0.7); EOSINOPHILS % (AUTO) 1.1 %; HCT - HEMATOCRIT 44.9 % (37.0-47.0); HGB - HEMOGLOBIN 15.3 g/dL (12.0-16.0); LYMPHOCYTES # (AUTO) 1.8 10^3/uL (1.5-3.5); LYMPHOCYTES % (AUTO) 26.2 %; MEAN CORPUSCULAR HEMOGLOBIN 30.9 pg (27.0-31.0); MEAN CORPUSCULAR HGB CONC 34.1 g/dL (32.0-36.0); MEAN CORPUSCULAR VOLUME 90.7 fL (81.0-99.0); MEAN PLATELET VOLUME 12.9 fL (7.9-10.8); MONOCYTES # (AUTO) 0.5 10^3/uL (0.0-1.0); MONOCYTES % (AUTO) 6.5 %; NEUTROPHILS # (AUTO) 4.6 10^3/uL (1.5-6.6); NEUTROPHILS % (AUTO) 65.5 %; PLT - PLATELET COUNT 184 10^3/uL (130-450); RED BLOOD COUNT 4.95 10^6/uL (4.20-5.40); RED CELL DISTRIBUTION WIDTH 12.1 % (12.0-15.0)
[2020-12-09 14:16] LABS: ALBUMIN 4.6 g/dL (3.2-5.5); ALBUMIN/GLOBULIN RATIO 1.3 (1.0-2.2); BILIRUBIN,TOTAL 1.4 mg/dL (0.2-1.0); CALCIUM 9.9 mg/dL (8.5-10.3); CREATININE 0.6 mg/dL (0.4-1.0); POTASSIUM 3.9 mmol/L (3.5-5.0); TOTAL PROTEIN 8.2 g/dL (6.7-8.2)
--- NOTE | 2020-12-09 14:19 | CT Report ---
PROCEDURE: MAXILLOFACIAL WO INDICATIONS: LT MOLAR EXTRACTION LT FACE SWELLING TECHNIQUE: Noncontrast 1.5 mm thick axial images acquired from the mandible through the frontal sinuses, with co linh and sagittal reformatting. For radiation dose reduction, the following was used: automated ex posure control, adjustment of mA and/or kV according to patient size. COMPARISON: None. FINDINGS: Image quality: Excellent. Bones and teeth: Orbital king are intact. Sinus king show no fracture or deformity. Nasal bones and septum are intact. Visualized portions of the mandible demonstrate no fractures or subluxation. Zygomatic arches are intact. Pterygoid plates are intact. Visualized portions of the skull base an d auditory canals are intact. Status post extraction of left maxillary molar with adjacent calcifica tion. Sinuses: Paranasal sinuses are aerated, without fluid levels or mucoceles. Minimal left maxillary s inus mucosal thickening. Mastoid air cells are aerated. Soft tissues: There is soft tissue prominence adjacent to expected left maxillary molar with adjacent soft tissue inflammation. Within limits of this noncontrast study there is no focal fluid collection . No enlarged lymph nodes. No soft tissue lacerations or debris. Vascular: Visualized vascular structures appear normal in the absence of contrast. Bony vascular fo ramina and canals are intact. IMPRESSION: Soft tissue swelling and inflammation adjacent to expected left maxillary molar suggestive of an infe ctious or inflammatory process. No focal fluid collection within the limits of this noncontrast exam. Reviewed by: Dany Montoya DO on 12/09/2020 1:18 PM [facility] Approved by: Dany Montoya DO on 12/09/2020 1:18 PM [facility] Station ID: [id number]
[2020-12-09 15:00] VITALS: BP 121/89
== END 2020-12-09 15:00 | disposition home or self-care (01) ==
LOC: ED 12:31
DX: G89.18 Other acute postprocedural pain (principal); G50.1 Atypical facial pain; H54.62 Unqualified visual loss, left eye, normal vision right eye; F17.200 Nicotine dependence, unspecified, uncomplicated
CPT/HCPCS: 36415; 70486; 80053; 83690; 85025; 96374; 99284; J1170

== ENCOUNTER 2021-09-05 13:02 | Emergency (ER) | payer MEDICAID ==
[2021-09-05 13:11] VITALS: BP 155/111
--- NOTE | 2021-09-05 13:31 | ED Physician Documentation ---
History of Present Illness - Stated complaint Stated Complaint: RIB PX - Chief complaint Chief Complaint: Back Pain - Additonal information Additional information: 51-year-old female presents to the emergency department for evaluation of pos terior right rib wall chest discomfort as well as left arm tingling. She reports a slip and fall on 27 August while at [place]. She was seen initially at [facility]. She reports that no x-rays were done. Since then she has had persistent pain on the right side of her chest. She is concerned she could have a rib fracture she has a history of osteoporosis. She is also reporting some left arm tingling and chest discomfort. She wants to make sure she is not having heart attack. No cough, no fevers, no lower extremity swelling. 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 Claim number [id number] Review of Systems Constitutional: denies: Fever, Chills Eyes: reports: Reviewed and negative Ears: reports: Loss of hearing Nose: reports: Reviewed and negative Throat: reports: Reviewed and negative Cardiac: reports: Chest pain / pressure. denies: Palpitations, Pedal edema Respiratory: reports: Reviewed and negative GI: reports: Reviewed and negative : reports: Reviewed and negative Musculoskeletal: reports: Back pain, Other (right rib wall pain) Neurologic: reports: Reviewed and negative PD PAST MEDICAL HISTORY - Past Medical History Cardiovascular: Other Respiratory: Asthma Endocrine/Autoimmune: None GI: GERD, Hemorrhoids : None HEENT: Chronic vision loss, Chronic hearing loss, Other Psych: Depression Musculoskeletal: Osteoarthritis, Fibromyalgia, Osteoporosis, Other Derm: None - Past Surgical History Past Surgical History: Yes General: Cholecystectomy, Colonoscopy 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, Other Cardiovascular: Other HEENT: Cataracts - Present Medications Home Medications: Ambulatory Orders Medication Instructions Recorded Confirmed Albuterol 2 puffs PO PRN PRN 11/13/17 12/09/20 Losartan Potassium [Cozaar] 100 mg PO DAILY 09/04/20 12/09/20 Pregabalin [Lyrica] 150 mg PO TID PRN 09/04/20 12/09/20 Tizanidine HCl [Zanaflex] 4 mg PO TID 09/04/20 12/09/20 Chlorhexidine Gluconate [Peridex] 15 ml MM 12/09/20 Fluconazole [Diflucan] 200 mg PO ONCE #1 tablet 12/09/20 HYDROcod/ACETAM 5/325 [[place] 5/325] 1 - 2 tablet PO Q6H PRN #14 tablet 12/09/20 clindamycin HCL [Clindamycin HCl] 300 mg PO Q6H 12/09/20 12/09/20 oxyCODONE/ACET 5/325 [Percocet 5 1 each PO Q4-6H 12/09/20 12/09/20 mg/325 mg] - Allergies Allergies/Adverse Reactions: Allergies Allergy/AdvReac Type Severity Reaction Status Date / Time Penicillins Allergy Rash Verified 09/05/21 13:11 acetaminophen AdvReac Unknown Verified 09/05/21 13:11 [From Tylenol-Codeine #3] codeine AdvReac Unknown Verified 09/05/21 13:11 [From Tylenol-Codeine #3] naproxen AdvReac Unknown Verified 09/05/21 13:11 - Social History Does the pt smoke?: Yes Smoking Status: Current every day smoker Does the pt drink ETOH?: No Does the pt have substance abuse?: No - Immunizations Immunizations are current?: Yes Immunizations: TDAP >10years/unknown - POLST Patient has POLST: No PD ED PE EXPANDED - General General: Alert, No acute distress, Well developed/nourished - Cardiac Cardiac: Regular Rate, Radial strong equal, Pedal strong equal. No: Murmur Present - Respiratory Respiratory: Clear to ausultation chloé, Other (Tenderness of right lateral posterior rib wall. No ecchymosis or contusion noted.). No: Distress, Labored - Abdomen Abdomen: Normal Bowel sounds. No: Tender to palpation - Derm Derm: Normal color, Warm and dry. No: Rash - Extremities Extremities: Normal. No: Deformity - Neuro Neuro: Alert and Oriented X 3, CNII-XII intact - GCS Eye Opening: Spontaneous Motor: Obeys Commands Verbal: Oriented Total: 15 Results - Vitals Vitals: Vital Signs - 24 hr 09/05/21 13:07 Temperature 36.0 C L Heart Rate 66 Respiratory 16 Rate Blood Pressure 155/111 H O2 Saturation 96 Oxygen O2 Source Room air - EKG (time done) 1359 Rate: Rate (enter#) (70) Rhythm: NSR [place]: Normal Intervals: Normal SD. No: Prolonged QT QRS: LVH Ischemia: Other (V3 Q waves new) Compare to prior EKG: Changed from prior EKG Computer interpretation: Agree with computer - Labs Labs: Laboratory Tests 09/05/21 09/05/21 09/05/21 13:47 13:47 13:47 WBC 7.8 RBC 4.32 Hgb 13.7 Hct 39.5 MCV 91.4 MCH 31.7 H MCHC 34.7 RDW 11.7 L Plt Count 182 MPV 13.0 H Neut # (Auto) 5.0 Lymph # (Auto) 2.1 [place] # (Auto) 0.5 Eos # (Auto) 0.1 Baso # (Auto) 0.0 Absolute Nucleated RBC 0.00 Nucleated RBC % 0.0 Sodium 137 Potassium 4.1 Chloride 101 Carbon Dioxide 28 Anion Gap 8.0 BUN 12 Creatinine 0.7 Estimated GFR (MDRD) 88 L Glucose 111 H Calcium 9.1 Troponin I High Sens 6.0 - Rads (name of study) Ribs right with PA chest Radiology: Final report received (No acute displaced rib fracture. No p neumothorax. Lungs appear clear) PD MEDICAL DECISION MAKING - ED course Complexity details: reviewed results, re-evaluated patient, considered differential, d/w patient ED course: 51-year-old female presents emergency department for evaluation of right lateral chest wall pain after a slip and fall at work on 27 August. She is concerned she could have a rib fracture. She is also reporting left arm tingling for the last 4 days. No fevers, no nausea or vomiting. Screening EKG is nonischemic. Screening labs including high-sensitivity troponin are negative. Rib series with PA chest shows no acute pneumothorax pneumonia or worrisome findings. This was relayed to the patient. Emergent return precautions were discussed for failure symptoms to improve. She is encouraged to continue follow-up with occupational therapy and her primary care doctor for longer-term management of her back and chest wall pain. [id number] completed. This is a follow-up to her claim that was initiated on the at the time of original injury. Departure - Departure Disposition: 01 Home, Self Care Clinical Impression: Chest wall pain, Tingling of left upper extremity Condition: Stable Record reviewed to determine appropriate education?: Yes Instructions: ED Contusion Chest Wall Ch Comments: Marjan it is important that you continue to follow-up with primary care doctor for longer-term management of your chest wall pain and contusion. The x-ray today does not show any obvious broken bones on either your right or left side. There is no pneumothorax. No findings of pneumonia. You do clearly have scoliosis however. It is important you continue to follow-up with labor and industries/occupational therapy. You did report some tingling in your left arm. Your screening labs are essentially normal. However given your age you should be referred to a strategic marketing leader as an outpatient for work-up to ensure that your heart is safe. You may benefit from an outpatient echocardiogram or stress test. However this is not related to your fall. Discharge Date/Time: 09/05/21 14:44
--- NOTE | 2021-09-05 13:54 | XRAY Report ---
PROCEDURE: Ribs w/PA Chest RT INDICATIONS: fall with rib pain TECHNIQUE: 2 views of the right ribs were acquired, along with a single view chest. COMPARISON: Rib radiographs 02/29/2020 FINDINGS: Surgical changes and devices: Sternotomy wires are present. Bones and chest wall: No acute displaced rib fracture. Surgical clips are present.. No suspicious b jo ann lesions. Overlying soft tissues appear unremarkable. Lungs and pleura: No pleural effusions or pneumothorax. Lungs appear clear. Mediastinum: Mediastinal contours appear normal. Heart size is normal. IMPRESSION: No acute displaced rib fracture. No pneumothorax. Reviewed by: Leoncio Neri MD on 09/05/2021 1:53 PM [facility] Approved by: Leoncio Neri MD on 09/05/2021 1:53 PM [facility] Station ID: [id number]
[2021-09-05 13:55] LABS: BASOPHILS % (AUTO) 0.4 %; EOSINOPHILS # (AUTO) 0.1 10^3/uL (0.0-0.7); HCT - HEMATOCRIT 39.5 % (37.0-47.0); HGB - HEMOGLOBIN 13.7 g/dL (12.0-16.0); LYMPHOCYTES # (AUTO) 2.1 10^3/uL (1.5-3.5); LYMPHOCYTES % (AUTO) 27.5 %; MEAN CORPUSCULAR HEMOGLOBIN 31.7 pg (27.0-31.0); MEAN CORPUSCULAR HGB CONC 34.7 g/dL (32.0-36.0); MEAN CORPUSCULAR VOLUME 91.4 fL (81.0-99.0); MONOCYTES # (AUTO) 0.5 10^3/uL (0.0-1.0); PLT - PLATELET COUNT 182 10^3/uL (130-450); RED BLOOD COUNT 4.32 10^6/uL (4.20-5.40); RED CELL DISTRIBUTION WIDTH 11.7 % (12.0-15.0); WHITE BLOOD COUNT 7.8 x10^3/uL (4.8-10.8)
[2021-09-05 14:06] LABS: CALCIUM 9.1 mg/dL (8.5-10.3); CREATININE 0.7 mg/dL (0.4-1.0); POTASSIUM 4.1 mmol/L (3.5-5.0)
== END 2021-09-05 14:44 | disposition home or self-care (01) ==
LOC: ED 13:02
DX: R07.89 Other chest pain (principal); W00.0XXA Fall on same level due to ice and snow, initial encounter; Y99.0 Civilian activity done for income or pay; F17.200 Nicotine dependence, unspecified, uncomplicated; R20.2 Paresthesia of skin
CPT/HCPCS: 36415; 80048; 84484; 85025; 93005; 99283; 99284

== ENCOUNTER 2022-01-01 16:34 | Emergency (ER) | payer OTHER, MEDICAID ==
[2022-01-01 16:55] LABS: BILIRUBIN,URINE NEGATIVE (NEGATIVE); GLUCOSE, URINE (UA) NEGATIVE (NEGATIVE); KETONES,URINE (UA) NEGATIVE (NEGATIVE); LEUKOCYTE ESTERASE, URINE NEGATIVE (NEGATIVE); NITRITE,URINE NEGATIVE (NEGATIVE); OCCULT BLOOD,URINE SMALL (NEGATIVE); PROTEIN,URINE NEGATIVE (NEGATIVE); UROBILINOGEN,URINE 0.2 (NORMAL) E.U./dL (NORMAL)
[2022-01-01 16:56] LABS: CLARITY,URINE CLEAR (CLEAR)
[2022-01-01 17:03] LABS: BACTERIA,URINE None Seen /HPF (None Seen); RBC,URINE 0-5 /HPF (0-5); SQUAMOUS EPITHELIAL CELL,UR RARE Squamous (<= Few); WBC,URINE 0-3 /HPF (0-5)
[2022-01-01 17:13] LABS: BASOPHILS % (AUTO) 0.3 %; EOSINOPHILS # (AUTO) 0.1 10^3/uL (0.0-0.7); EOSINOPHILS % (AUTO) 0.8 %; HCT - HEMATOCRIT 40.8 % (37.0-47.0); HGB - HEMOGLOBIN 13.9 g/dL (12.0-16.0); LYMPHOCYTES # (AUTO) 1.2 10^3/uL (1.5-3.5); LYMPHOCYTES % (AUTO) 14.7 %; MEAN CORPUSCULAR HEMOGLOBIN 31.5 pg (27.0-31.0); MEAN CORPUSCULAR HGB CONC 34.1 g/dL (32.0-36.0); MEAN CORPUSCULAR VOLUME 92.5 fL (81.0-99.0); MEAN PLATELET VOLUME 12.5 fL (7.9-10.8); MONOCYTES # (AUTO) 0.6 10^3/uL (0.0-1.0); MONOCYTES % (AUTO) 7.8 %; NEUTROPHILS % (AUTO) 76.1 %; PLT - PLATELET COUNT 142 10^3/uL (130-450); RED BLOOD COUNT 4.41 10^6/uL (4.20-5.40); RED CELL DISTRIBUTION WIDTH 11.9 % (12.0-15.0); WHITE BLOOD COUNT 7.8 x10^3/uL (4.8-10.8)
[2022-01-01 17:18] LABS: ALBUMIN 4.2 g/dL (3.2-5.5); ALBUMIN/GLOBULIN RATIO 1.1 (1.0-2.2); BILIRUBIN,TOTAL 1.5 mg/dL (0.2-1.0); CALCIUM 9.5 mg/dL (8.5-10.3); POTASSIUM 4.3 mmol/L (3.5-5.0); TOTAL PROTEIN 7.9 g/dL (6.7-8.2)
[2022-01-01] MEDS ORDERED: HYDROmorphone 1 MG/ML CARPUJECT IVP STA (17:37)
--- NOTE | 2022-01-01 17:39 | ED Physician Documentation ---
PD HPI ABD PAIN - Stated complaint Stated Complaint: LOW BACK/ABD PAIN - Chief complaint Chief Complaint: Back Pain - History obtained from History obtained from: Patient - History of Present Illness Timing - onset: Today Timing - duration: Days (1) Timing - details: Gradual onset Pain level max: 10 Pain level now: 9 Quality: Aching, Pain Location: Other (R flank) Improved by: Laying still Worsened by: Moving, Palpation Associated symptoms: No: Fever, Nausea, Vomiting, Hematemesis, Diarrhea, Constipation, Melena, Hematochezia, Dysuria, Hematuria, Chest pain, Dizzy, Near syncope / syncope, Loss of appetite, Weight loss, Vaginal bleeding, Vaginal dc Similar symptoms before: Has not had sx before Recently seen: Not recently seen - Additional information Additional information: 51-year-old female presents to the emergency department with right-sided back pain that radiates to the right side of her abdomen. Worse with movement, better with rest. Does not recall any specific injuries. No hematuria. No history of ureteral stones. Took ibuprofen at 4 AM, but has not taken anything in the past 12 hours. No loss of bowel or bladder control. No urinary symptoms. Review of Systems Constitutional: denies: Fever, Chills Respiratory: denies: Dyspnea, Cough GI: reports: Abdominal Pain (Sharp, right-sided, feels like it comes from her back and wraps around the anterior aspect). denies: Nausea, Vomiting, Constipation, Diarrhea, Hematemesis, Bloody / black stool : denies: Incontinent Skin: denies: Rash Musculoskeletal: denies: Neck pain Neurologic: denies: Generalized weakness, Focal weakness, Numbness PD PAST MEDICAL HISTORY - Past Medical History Cardiovascular: Other Respiratory: Asthma Endocrine/Autoimmune: None GI: GERD, Hemorrhoids : None HEENT: Chronic vision loss, Chronic hearing loss, Other Psych: Depression Musculoskeletal: Osteoarthritis, Fibromyalgia, Osteoporosis, Other Derm: None - Past Surgical History Past Surgical History: Yes General: Cholecystectomy, Colonoscopy 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, Other Cardiovascular: Other HEENT: Cataracts - Present Medications Home Medications: Ambulatory Orders Medication Instructions Recorded Confirmed Albuterol 2 puffs PO PRN PRN 11/13/17 01/01/22 Losartan Potassium [Cozaar] 100 mg PO DAILY 09/04/20 01/01/22 Pregabalin [Lyrica] 150 mg PO TID PRN 09/04/20 01/01/22 Tizanidine HCl [Zanaflex] 4 mg PO TID 09/04/20 01/01/22 Ondansetron Odt [Zofran] 4 mg TL Q6H PRN #10 tablet 01/01/22 Oxycodone HCl/Acetaminophen 1 - 2 each PO Q6H PRN #14 tablet 01/01/22 [Percocet 5-325 mg Tablet] - Allergies Allergies/Adverse Reactions: Allergies Allergy/AdvReac Type Severity Reaction Status Date / Time Penicillins Allergy Rash Verified 01/01/22 16:50 acetaminophen AdvReac Unknown Verified 01/01/22 16:50 [From Tylenol-Codeine #3] codeine AdvReac Unknown Verified 01/01/22 16:50 [From Tylenol-Codeine #3] naproxen AdvReac Unknown Verified 01/01/22 16:50 - Social History Does the pt smoke?: Yes Smoking Status: Current every day smoker Does the pt drink ETOH?: No Does the pt have substance abuse?: No - Immunizations Immunizations are current?: Yes Immunizations: TDAP >10years/unknown - POLST Patient has POLST: No PD ED PE NORMAL - Vitals Vital signs reviewed: Yes - General General: Alert and oriented X 3, No acute distress, Well developed/nourished - HEENT HEENT: PERRL, Moist mucous membranes - Neck Neck: Supple, no meningeal sign - Cardiac Cardiac: RRR, Strong equal pulses - Respiratory Respiratory: No respiratory distress, Clear bilaterally - Abdomen Abdomen: Soft, Non tender, Non distended - Back Back: No CVA TTP, No spinal TTP, Other (Mild tenderness to palpation over the right flank, no CVA tenderness.) - Derm Derm: Warm and dry - Extremities Extremities: No edema, No calf tenderness / cord - Neuro Neuro: Alert and oriented X 3, obgyn specialist 2-12 intact, No motor deficit, No sensory deficit, Other (Normal bilateral lower extremity patellar and ankle jerk reflexes. Normal great toe extension bilaterally. no saddle anesthesia) Eye Opening: Spontaneous Motor: Obeys Commands Verbal: Oriented GCS Score: 15 - Psych Psych: Normal mood, Normal affect Results - Vitals Vitals: Vital Signs - 24 hr 01/01/22 01/01/22 01/01/22 16:45 18:15 19:19 Temperature 36.6 C 36.6 C Heart Rate 85 91 88 Respiratory 14 15 15 Rate Blood Pressure 148/71 H 153/79 H 142/75 H O2 Saturation 96 94 95 Oxygen O2 Source Room air - Labs Labs: Laboratory Tests 01/01/22 01/01/22 01/01/22 16:42 17:00 17:00 WBC 7.8 RBC 4.41 Hgb 13.9 Hct 40.8 MCV 92.5 MCH 31.5 H MCHC 34.1 RDW 11.9 L Plt Count 142 MPV 12.5 H Neut # (Auto) 6.0 Lymph # (Auto) 1.2 L Woods # (Auto) 0.6 Eos # (Auto) 0.1 Baso # (Auto) 0.0 Absolute Nucleated RBC 0.00 Nucleated RBC % 0.0 Sodium 141 Potassium 4.3 Chloride 102 Carbon Dioxide 30 Anion Gap 9.0 BUN 18 Creatinine 1.0 Estimated GFR (MDRD) 58 L Glucose 116 H Calcium 9.5 Total Bilirubin 1.5 H AST 24 ALT 26 Alkaline Phosphatase 78 Total Protein 7.9 Albumin 4.2 Globulin 3.7 Albumin/Globulin Ratio 1.1 Lipase 41 Urine Color YELLOW Urine Clarity CLEAR Urine pH 6.0 Ur Specific Clay 1.010 Urine Protein NEGATIVE Urine Glucose (UA) NEGATIVE Urine Ketones NEGATIVE Urine Occult Blood SMALL H Urine Nitrite NEGATIVE Urine Bilirubin NEGATIVE Urine Urobilinogen 0.2 (NORMAL) Ur Leukocyte Esterase NEGATIVE Urine RBC 0-5 Urine WBC 0-3 Ur Squamous Epith Cells RARE Squamous Urine Bacteria None Seen Ur Microscopic Review INDICATED Urine Culture Comments NOT INDICATED - Rads (name of study) CT abdomen pelvis Radiology: Final report received, EMP read contemporaneously, See rad report PD MEDICAL DECISION MAKING - ED course Complexity details: reviewed results, re-evaluated patient, considered differential, d/w patient ED course: No significant findings on CT of the abdomen pelvis. No evidence of ureteral stone. No evidence of intra-abdominal issue. No acute findings on laboratory testing. Pain well controlled in the emergency department. Possible that this is coming from a nerve in her back. We will trial her on pain medication for home and have her follow-up with her doctor for further care. No evidence of cauda equina, epidural abscess. No IV drug use. Patient counseled regarding signs and symptoms for which I believe and urgent re-evaluation would be megan tatum. Patient with good understanding of and agreement to plan and is comfortable going home at this time This document was made in part using voice recognition software. While efforts are made to proofread this document, sound alike and grammatical errors may occur. Departure - Departure Disposition: 01 Home, Self Care Clinical Impression: Back pain Qualifiers: Back pain location: low back pain Chronicity: acute Back pain laterality: right Sciatica presence: without sciatica Qualified Code(s): M54.50 - Low back pain, unspecified Condition: Good Instructions: ED Neck Back Pain General Follow-Up: EDDIE QUINTANILLA MD [Primary Care Provider] - Within 1 week Prescriptions: Oxycodone HCl/Acetaminophen [Percocet 5-325 mg Tablet] 1 - 2 each PO Q6H PRN #14 tablet PRN Reason: pain Ondansetron Odt [Zofran] 4 mg TL Q6H PRN #10 tablet PRN Reason: Nausea / Vomiting Comments: Please follow-up with your doctor for further care. Your laboratory testing, urinalysis and CT scan do not show any acute abnormalities to explain your pain tonight. Your pain may be due to your back and a nerve being irritated. We will trial you on pain medication for home. Your prescriptions were sent to [facility] in [place]. I am prescribing a short course of narcotic pain medication for you. These are potentially dangerous and addictive medications that should be used carefully. These medications may constipate you. Take an xofo-wum-bnfiuaf stool softener (docusate) twice daily with plenty of water while taking these medications. If you go 24 hours without a bowel movement, take cvin-lcq-mlzzvbr miralax, per package instructions. Do not drink or drive while taking these medications. If you received narcotic or sedating medications while in the emergency department, do not drive for 24 hours. Store this medication in a safe, secure place and out of reach of children. It is a violation of federal law to give or sell this medication to another person or to use in a manner other than prescribed. The ED will not refill narcotic prescriptions, including prescriptions lost or stolen. To dispose of unwanted medications: 1. [facility] [address] in [place] has a medication drop box. They accept prescription medications (in pill form) Friday through Friday 9:00 a.m. to 5:00 p.m. 2. The [facility] accepts prescription medications (in pill form only) for disposal year round. Call for more information. 3. Contact the [facility] for the next [facility] sponsored prescription drug collection event. , [phone], or [phone]; IMPRESSION: 1.No significant abnormality. 2.Mild splenomegaly. Discharge Date/Time: 01/01/22 19:29
[2022-01-01] MEDS ORDERED: IOPAMIDOL-300 100 ML VIAL ONE (18:00)
[2022-01-01] MEDS ORDERED: IOPAMIDOL-300 100 ML VIAL IVP ONE (18:19)
--- NOTE | 2022-01-01 18:30 | CT Report ---
PROCEDURE: Abdomen/Pelvis W INDICATIONS: RLQ abd pain CONTRAST: IV CONTRAST: Isovue 300 ml: 100 PO CONTRAST: *NO PO CONTRAST TECHNIQUE: After the administration of intravenous contrast, 5 mm thick sections acquired from the diaphragms to the symphysis. 5 mm thick coronal and sagittal reformats were acquired. For radiation dose reducti on, the following was used: automated exposure control, adjustment of mA and/or kV according to mark ent size. COMPARISON: None. FINDINGS: Inferior chest: No focal consolidation, pleural effusion, or pneumothorax. Cardiomegaly without taya cardial effusion Gallbladder: Surgically absent. Biliary tree: Mild intrahepatic biliary duct dilatation. Liver: The liver demonstrates normal enhancement, size, and contour. Spleen: Normal enhancement. Measures up to 13.8 cm. Pancreas: No contour deforming mass or inflammatory change. Adrenals: Normal size without masses. Kidneys/ureters: Symmetric enhancement without nonspecific. Infection. No solid masses or hydronephro sis. Vasculature: No evidence of aneurysm or other significant vascular pathology. Lymphatic system: No pathologic enlargement by size criteria. GI/mesentery: No evidence of intestinal obstruction. Normal appearance of the appendix. Sigmoid diver ticulosis Peritoneum/Retroperitoneum: No free intraperitoneal gas or large collection. Urinary bladder: The urinary bladder is distended with a smooth thin wall. Pelvic organs: No significant abnormality. Bones/soft tissues: Multifocal degenerative change. Small fat-containing periumbilical hernia. IMPRESSION: 1.No significant abnormality. 2.Mild splenomegaly. Reviewed by: Hiram Ye MD on 01/01/2022 6:29 PM PDT Approved by: Hiram Ye MD on 01/01/2022 6:29 PM PDT Station ID: [id number]
[2022-01-01] MEDS ORDERED: ONDANSETRON 4 MG/2 ML VIAL IVP STA (18:45)
[2022-01-01] MEDS ORDERED: oxyCODONE 5 MG TABLET PO STA (18:45)
[2022-01-01 19:20] VITALS: BP 142/75
== END 2022-01-01 19:29 | disposition home or self-care (01) ==
LOC: ED 16:34
DX: M54.50 Low back pain, unspecified (principal); F17.200 Nicotine dependence, unspecified, uncomplicated
CPT/HCPCS: 36415; 74177; 80053; 81001; 83690; 85025; 96374; 96375; 99282; 99284; A9270; J1170; Q9967; 81003; 87086

== ENCOUNTER 2022-10-14 15:24 | Emergency (ER) | payer MEDICAID, OTHER ==
[2022-10-14 16:16] LABS: RAPID STREP SCREEN Negative (Negative)
--- NOTE | 2022-10-14 16:20 | XRAY Report ---
PROCEDURE: Chest 2 View X-Ray INDICATIONS: Productive cough with SOA. TECHNIQUE: 2 views of the chest were acquired. COMPARISON: Chest films dated 04/26/2018, CT abdomen and pelvis dated 01/01/2022. FINDINGS: Surgical changes and devices: Midline sternotomy wires. Lungs and pleura: No pleural effusions or pneumothorax. Lungs are clear. Mediastinum: Mediastinal contours are normal. Cardiomegaly. Bones and chest wall: No suspicious bony abnormalities. Soft tissues appear unremarkable. IMPRESSION: Cardiomegaly. No evidence acute pulmonary process. Reviewed by: Naveen Marc MD on 10/14/2022 4:18 PM PST Approved by: Naveen Marc MD on 10/14/2022 4:18 PM PST Station ID: [id number]
[2022-10-14 16:59] LABS: B. PARAPERTUSSIS- RESP PCR PAN NOT DETECTED; B. PERTUSSIS- RESP PCR PANEL NOT DETECTED; C. PNEUMONIAE- RESP PCR PANEL NOT DETECTED; CORONAVIRUS 229E-RESP PCR NOT DETECTED; CORONAVIRUS HKU1-RESP PCR NOT DETECTED; CORONAVIRUS NL63-RESP PCR NOT DETECTED; CORONAVIRUS OC43-RESP PCR NOT DETECTED; HUMAN METAPNEUMOVIRUS NOT DETECTED; INFLUENZA A- RESP PCR PANEL NOT DETECTED; INFLUENZA B - RESP PCR PANEL NOT DETECTED; M. PNEUMONIAE- RESP PCR PANEL NOT DETECTED; PARAINFLUENZA VIRUS 1 NOT DETECTED; PARAINFLUENZA VIRUS 2 NOT DETECTED; PARAINFLUENZA VIRUS 3 NOT DETECTED; PARAINFLUENZA VIRUS 4 NOT DETECTED; RHINOVIRUS/ENTEROVIRUS NOT DETECTED; RSV- RESP PCR PANEL NOT DETECTED; SARS-CoV-2 -RESP PCR PANEL NOT DETECTED
[2022-10-14 17:25] VITALS: BP 147/93
[2022-10-14] MEDS ORDERED: DEXAMETHASONE 10 MG/ML VIAL PO STA (18:04)
[2022-10-14] MEDS ORDERED: BENZONATATE 100 MG CAPSULE PO STA (18:04)
[2022-10-14] MEDS ORDERED: HYDROcod/ACETAM 5/325 MG TABLET PO STA (18:04)
--- NOTE | 2022-10-14 18:07 | ED Physician Documentation ---
PD HPI URI - Stated complaint Stated Complaint: THROAT PX/COUGH - Chief complaint Chief Complaint: Resp - History obtained from History obtained from: Patient - History of Present Illness Timing duration: Weeks (1) Timing details: Gradual onset Pain level max: 5 Pain level now: 5 Associated symptoms: Chills, Nasal congestion, Rhinorrhea, Productive cough - Additional information Additional information: Patient is a 52-year-old female who has been sick for the past 1 week. Rhinorrhea, congestion, cough and sore throat. Worse with eating and drinking. Nothing makes it better. She states that she is coughing up yellow/green phlegm. Feels out of breath when she walks. She has chest pain only with coughing. Feels generally achy all over. 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 Cardiovascular: Other HEENT: Cataracts - Present Medications Home Medications: Ambulatory Orders Medication Instructions Recorded Confirmed Albuterol 2 puffs PO PRN PRN 11/13/17 01/01/22 Losartan Potassium [Cozaar] 100 mg PO DAILY 09/04/20 01/01/22 Pregabalin [Lyrica] 150 mg PO TID PRN 09/04/20 01/01/22 Tizanidine HCl [Zanaflex] 4 mg PO TID 09/04/20 01/01/22 Ondansetron Odt [Zofran] 4 mg TL Q6H PRN #10 tablet 01/01/22 Oxycodone HCl/Acetaminophen 1 - 2 each PO Q6H PRN #14 tablet 01/01/22 [Percocet 5-325 mg Tablet] Benzonatate [Tessalon] 200 mg PO TID PRN #30 cap 10/14/22 Cetirizine HCl/Pseudoephedrine 1 each PO BID PRN #30 tab 10/14/22 [Zyrtec-D Tablet] HYDROcod/ACETAM 5/325 [[place] 5/325] 1 - 2 ea PO Q6H PRN #14 tablet 10/14/22 - Allergies Allergies/Adverse Reactions: Allergies Allergy/AdvReac Type Severity Reaction Status Date / Time Penicillins Allergy Rash Verified 10/14/22 15:45 acetaminophen AdvReac Unknown Verified 10/14/22 15:45 [From Tylenol-Codeine #3] codeine AdvReac Unknown Verified 10/14/22 15:45 [From Tylenol-Codeine #3] naproxen AdvReac Unknown Verified 10/14/22 15:45 - Social History Does the pt smoke?: Yes Smoking Status: Current every day smoker Does the pt drink ETOH?: No Does the pt have substance abuse?: No - Immunizations Immunizations are current?: Yes Immunizations: TDAP >10years/unknown - POLST Patient has POLST: No PD ED PE NORMAL - Vitals Vital signs reviewed: Yes - General General: Alert and oriented X 3, No acute distress - HEENT HEENT: PERRL, Ears normal, Moist mucous membranes, Pharynx benign - Neck Neck: Supple, no meningeal sign - Cardiac Cardiac: RRR, Strong equal pulses - Respiratory Respiratory: No respiratory distress, Clear bilaterally - Abdomen Abdomen: Normal bowel sounds, Soft, Non tender, Non distended - Derm Derm: Warm and dry, No rash - Extremities Extremities: No edema - Neuro Neuro: Alert and oriented X 3 - Psych Psych: Normal mood, Normal affect Results - Vitals Vitals: Vital Signs - 24 hr 10/14/22 10/14/22 15:39 17:25 Temperature 36.8 C 37.1 C Heart Rate 63 63 Respiratory 18 18 Rate Blood Pressure 179/79 H 147/93 H O2 Saturation 97 98 Oxygen O2 Source Room air - Labs Labs: Microbiology 10/14/22 15:45 Group A Strep Throat Culture - Final Throat Beta Hemolytic Strep Group C Laboratory Tests 10/14/22 10/14/22 15:45 15:45 Nasal Adenovirus (PCR) NOT DETECTED Nasal B. parapertussis DNA (PCR) NOT DETECTED Nasal Coronavir 229E PCR NOT DETECTED Nasal Coronavir HKU1 PCR NOT DETECTED Nasal Coronavir NL63 PCR NOT DETECTED Nasal Coronavir OC43 PCR NOT DETECTED Nasal Enterovir/Rhinovir PCR NOT DETECTED Nasal Influenza B PCR NOT DETECTED Nasal Influenza A PCR NOT DETECTED Nasal Parainfluen 1 PCR NOT DETECTED Nasal Parainfluen 2 PCR NOT DETECTED Nasal Parainfluen 3 PCR NOT DETECTED Nasal Parainfluen 4 PCR NOT DETECTED Nasal RSV (PCR) NOT DETECTED Nasal B.pertussis DNA PCR NOT DETECTED Nasal C.pneumoniae (PCR) NOT DETECTED [place] Human Metapneumo PCR NOT DETECTED Nasal M.pneumoniae (PCR) NOT DETECTED Nasal SARS-CoV-2 (PCR) NOT DETECTED Group A Strep Rapid Negative PD Medical Decision Making - ED course Complexity details: reviewed results, re-evaluated patient, considered differential, d/w patient ED course: No acute finding on chest x-ray. Her rapid strep is negative. Respiratory PCR is negative. Patient is well-appearing, nontoxic. Afebrile. No hypoxia. No respiratory distress. Likely viral illness. We will treat as a viral syndrome. Encourage p.o. hydration.We will place on pain medication, cough medication and decongestants for home. Patient counseled regarding signs and symptoms for which I believe and urgent re-evaluation would be necessary. Patient with good understanding of and agreement to plan and is comfortable going home at this time This document was made in part using voice recognition software. While efforts are made to proofread this document, sound alike and grammatical errors may occur. Departure - Departure Disposition: 01 Home, Self Care Clinical Impression: Viral URI Condition: Good Instructions: ED Viral Syndrome Follow-Up: your,doctor in 1 week [Other] Prescriptions: HYDROcod/ACETAM 5/325 [[place] 5/325] 1 - 2 ea PO Q6H PRN #14 tablet PRN Reason: Pain Benzonatate [Tessalon] 200 mg PO TID PRN #30 cap PRN Reason: Cough Cetirizine HCl/Pseudoephedrine [Zyrtec-D Tablet] 1 each PO BID PRN #30 tab PRN Reason: nasal congestion Comments: Your strep test, respiratory viral panel and x-ray do not show any acute abnormalities today. This appears to be a viral syndrome. Drink plenty of fluids. Return if you worsen. [facility] [place]. I am prescribing a short course of narcotic pain medication for you. These are potentially dangerous and addictive medications that should be used carefully. These medications may constipate you. Take an azgt-jed-jpdynbe stool softener (docusate) twice daily with plenty of water while taking these medications. If you go 24 hours without a bowel movement, take pcds-wwc-cusrhyz miralax, per package instructions. Do not drink or drive while taking these medications. If you [facility] narcotic or sedating [facility] do not drive for 24 hours. Store this medication in a safe, secure place and out of reach of children. It is a violation of federal law to give or sell this medication to another person or to use in a manner other than prescribed. The ED will not refill narcotic prescriptions, including prescriptions lost or stolen. To dispose of unwanted medications: 1. [facility] [address] in [place] has a medication drop box. They accept prescription medications (in pill form) Friday through Friday 9:00 a.m. to 5:00 p.m. 2. [facility] accepts prescription medications (in pill form only) for disposal year round. Call for more information. 3. Contact the [facility] for the next [facility] sponsored prescription drug collection event. , [phone], or [phone]; Discharge Date/Time: 10/14/22 18:20
== END 2022-10-14 18:20 | disposition home or self-care (01) ==
LOC: ED 15:24
DX: J06.9 Acute upper respiratory infection, unspecified (principal); F17.200 Nicotine dependence, unspecified, uncomplicated; Z20.822 Contact with and (suspected) exposure to COVID-19
CPT/HCPCS: 71046; 87070; 87077; 87430; 87633; 99284; A9270

== ENCOUNTER 2022-12-22 08:20 | Emergency (ER) | payer MEDICAID ==
[2022-12-22] MEDS ORDERED: guaiFENesin/DEXTROMETHORPHAN 10 ML UDC PO STA (08:55)
[2022-12-22] MEDS ORDERED: predniSONE 20 MG TABLET PO STA (08:55)
[2022-12-22] MEDS ORDERED: ACETAMINOPHEN 325 MG TABLET PO STA (08:55)
[2022-12-22 09:09] LABS: RAPID STREP SCREEN Negative (Negative)
--- NOTE | 2022-12-22 09:28 | XRAY Report ---
PROCEDURE: Chest 1 View X-Ray INDICATIONS: cough TECHNIQUE: One view of the chest was acquired. COMPARISON: 12/12/2022 FINDINGS: Surgical changes and devices: Sternotomy changes are noted. Lungs and pleura: No pleural effusions or pneumothorax. Lungs are clear. Mediastinum: Mediastinal contours appear normal. Heart size is mildly enlarged. Bones and chest wall: No suspicious bony lesions. Overlying soft tissues appear unremarkable. IMPRESSION: Clear lungs. Mild cardiomegaly. Sternotomy. Reviewed by: Bib Bearden MD on 12/22/2022 8:26 AM GAVIN Approved by: Bib Bearden MD on 12/22/2022 8:26 AM GAVIN Station ID: [id number]
[2022-12-22] MEDS ORDERED: DOXYCYCLINE 100 MG TABLET PO STA (09:33)
[2022-12-22] MEDS ORDERED: LIDOCAINE PATCH 5% TOP STA (09:38)
--- NOTE | 2022-12-22 09:42 | ED Physician Documentation ---
PD HPI URI - Stated complaint Stated Complaint: SOA/COUGH - Chief complaint Chief Complaint: Resp - History obtained from History obtained from: Patient - Additional information Additional information: Patient is a 52-year-old female presenting for evaluation of sore throat, nasal congestion, productive cough, sinus tenderness for the past 2 weeks. Patient states that she had a strep infection in September and was doing well up until 2 weeks ago when she developed the symptoms.She has reported recent sick contacts. She has tried ibuprofen without significant improvement in her symptoms. She reports pain in the left side of her ribs from coughing. She denies vomiting or diarrhea, chest pain, abdominal pain, dysuria. Review of Systems Constitutional: denies: Fever Nose: reports: Congestion, Sinus pressure / pain Respiratory: reports: Cough. denies: Dyspnea GI: denies: Abdominal Pain, Vomiting Musculoskeletal: denies: Back pain PD PAST MEDICAL HISTORY - Past Medical History Cardiovascular: Other Respiratory: Asthma Endocrine/Autoimmune: None GI: GERD, Hemorrhoids : None HEENT: Chronic vision loss, Chronic hearing loss, Other Psych: Depression Musculoskeletal: Osteoarthritis, Fibromyalgia, Osteoporosis, Other Derm: None - Past Surgical History Past Surgical History: Yes General: Cholecystectomy, Colonoscopy Ortho: Other /[employer]: Hysterectomy, Other Cardiovascular: Other HEENT: Cataracts - Present Medications Home Medications: Ambulatory Orders Medication Instructions Recorded Confirmed Albuterol 2 puffs PO PRN PRN 11/13/17 01/01/22 Losartan Potassium [Cozaar] 100 mg PO DAILY 09/04/20 01/01/22 Pregabalin [Lyrica] 150 mg PO TID PRN 09/04/20 01/01/22 Tizanidine HCl [Zanaflex] 4 mg PO TID 09/04/20 01/01/22 Ondansetron Odt [Zofran] 4 mg TL Q6H PRN #10 tablet 01/01/22 Oxycodone HCl/Acetaminophen 1 - 2 each PO Q6H PRN #14 tablet 01/01/22 [Percocet 5-325 mg Tablet] Benzonatate [Tessalon] 200 mg PO TID PRN #30 cap 10/14/22 Cetirizine HCl/Pseudoephedrine 1 each PO BID PRN #30 tab 10/14/22 [Zyrtec-D Tablet] HYDROcod/ACETAM 5/325 [[place] 5/325] 1 - 2 ea PO Q6H PRN #14 tablet 10/14/22 cephALEXin [Keflex] 500 mg PO Q6H #40 cap 10/16/22 Benzonatate [Tessalon] 200 mg PO QID PRN #20 cap 12/22/22 Doxycycline Hyclate 100 mg PO BID #14 tab 12/22/22 predniSONE [Deltasone] 60 mg PO DAILY 4 Days #12 tablet 12/22/22 - Allergies Allergies/Adverse Reactions: Allergies Allergy/AdvReac Type Severity Reaction Status Date / Time Penicillins Allergy Rash Verified 10/14/22 15:45 acetaminophen AdvReac Unknown Verified 10/14/22 15:45 [From Tylenol-Codeine #3] codeine AdvReac Unknown Verified 10/14/22 15:45 [From Tylenol-Codeine #3] naproxen AdvReac Unknown Verified 10/14/22 15:45 - Social History Does the pt smoke?: Yes Smoking Status: Current every day smoker Does the pt drink ETOH?: No Does the pt have substance abuse?: No - Immunizations Immunizations are current?: Yes Immunizations: TDAP >10years/unknown - POLST Patient has POLST: No PD ED PE NORMAL - General General: Alert and oriented X 3, No acute distress, Well developed/nourished - HEENT HEENT: Atraumatic, Ears normal, Moist mucous membranes, Pharynx benign (No oral swelling or abscess), Other (Bilateral maxillary sinus tenderness) - Neck Neck: Supple, no meningeal sign - Cardiac Cardiac: RRR, No murmur, Other (Left-sided chest wall tenderness to palpation, no crepitus, no deformity) - Respiratory Respiratory: No respiratory distress, Clear bilaterally - Abdomen Abdomen: Soft, Non tender, Non distended - Back Back: No spinal TTP - Derm Derm: Warm and dry - Neuro Neuro: Normal speech Results - Vitals Vitals: Vital Signs - 24 hr 12/22/22 12/22/22 08:35 09:49 Temperature 36.9 C 37.2 C Heart Rate 73 80 Respiratory 18 18 Rate Blood Pressure 192/108 H 194/103 H O2 Saturation 98 98 Oxygen O2 Source Room air - Labs Labs: Laboratory Tests 12/22/22 12/22/22 08:47 08:47 Nasal Adenovirus (PCR) NOT DETECTED Nasal B. parapertussis DNA (PCR) NOT DETECTED Nasal Coronavir 229E PCR NOT DETECTED Nasal Coronavir HKU1 PCR NOT DETECTED Nasal Coronavir NL63 PCR NOT DETECTED Nasal Coronavir OC43 PCR NOT DETECTED Nasal Enterovir/Rhinovir PCR NOT DETECTED Nasal Influenza B PCR NOT DETECTED Nasal Influenza A PCR NOT DETECTED Nasal Parainfluen 1 PCR NOT DETECTED Nasal Parainfluen 2 PCR NOT DETECTED Nasal Parainfluen 3 PCR NOT DETECTED Nasal Parainfluen 4 PCR NOT DETECTED Nasal RSV (PCR) NOT DETECTED Nasal B.pertussis DNA PCR NOT DETECTED Nasal C.pneumoniae (PCR) NOT DETECTED [place] Human Metapneumo PCR NOT DETECTED Nasal M.pneumoniae (PCR) NOT DETECTED Nasal SARS-CoV-2 (PCR) NOT DETECTED Group A Strep Rapid Negative PD Medical Decision Making - ED course Complexity details: reviewed results, re-evaluated patient, d/w patient ED course: Patient presenting for evaluation of URI symptoms for the past 2 weeks with cough, sinus congestion, nasal congestion, sore throat.Her blood pressure is elevated. She reports she is on losartan but was instructed to take it only as needed by her PCP. She says that sometimes her blood pressure is normal and so she does not take it on those days. She did take it this morning.Respiratory exam is benign. Chest x-ray was reviewed by me and I do not see signs of pneumonia or effusion. Her respiratory swab is pending at time of discharge. Her strep test is negative.Her blood pressure remained elevated but she appears to be asymptomatic in regards to this and it was instructed to have close PCP follow-up. Due to sinus congestion symptoms for the past 2 weeks without improvement with [id number] treatments I do believe patient is an appropriate candidate for antibiotic treatment. She has a penicillin allergy so prescribe doxycycline.`Patient is advised on treatment plan to include antibiotics as well as need for close follow-up with PCP. She is advised on concerning symptoms to return for. Departure - Departure Disposition: 01 Home, Self Care Clinical Impression: Sinusitis, Bronchitis, Pharyngitis, Uncontrolled hypertension Condition: Stable Instructions: ED Bronchitis Asthmatic, ED Sinusitis Abx Tx Prescriptions: predniSONE [Deltasone] 60 mg PO DAILY 4 Days #12 tablet Doxycycline Hyclate 100 mg PO BID #14 tab Benzonatate [Tessalon] 200 mg PO QID PRN #20 cap PRN Reason: Cough Comments: Your chest x-ray does not show signs of pneumonia. Your strep test is negative and a culture is pending. Your respiratory swab is also pending which checks for COVID and other respiratory viruses. We will notify you if it is positive for COVID otherwise you can check your patient portal for the results later today. I am starting you on an antibiotic for a sinus infection called doxycycline. I am also starting you on a short course of prednisone and would recommend you continue using your albuterol inhaler for bronchitis. I have also sent medicine to help you with your cough. These prescriptions are all sent to [facility] in [place]. Please continue with staying hydrated. You may also find a saline nasal spray to be helpful in loosening the congestion in your nose. Your blood pressure was quite elevated today. You may need to start taking your losartan every day versus just as needed. I would recommend contacting your primary care provider for close follow-up and recheck of your blood pressure. Return to the emergency department with any new or worsening symptoms. Discharge Date/Time: 12/22/22 10:00
[2022-12-22 09:49] VITALS: BP 194/103
[2022-12-22 10:17] LABS: B. PARAPERTUSSIS- RESP PCR PAN NOT DETECTED; B. PERTUSSIS- RESP PCR PANEL NOT DETECTED; C. PNEUMONIAE- RESP PCR PANEL NOT DETECTED; CORONAVIRUS 229E-RESP PCR NOT DETECTED; CORONAVIRUS HKU1-RESP PCR NOT DETECTED; CORONAVIRUS NL63-RESP PCR NOT DETECTED; CORONAVIRUS OC43-RESP PCR NOT DETECTED; HUMAN METAPNEUMOVIRUS NOT DETECTED; INFLUENZA A- RESP PCR PANEL NOT DETECTED; INFLUENZA B - RESP PCR PANEL NOT DETECTED; M. PNEUMONIAE- RESP PCR PANEL NOT DETECTED; PARAINFLUENZA VIRUS 1 NOT DETECTED; PARAINFLUENZA VIRUS 2 NOT DETECTED; PARAINFLUENZA VIRUS 3 NOT DETECTED; PARAINFLUENZA VIRUS 4 NOT DETECTED; RHINOVIRUS/ENTEROVIRUS NOT DETECTED; RSV- RESP PCR PANEL NOT DETECTED; SARS-CoV-2 -RESP PCR PANEL NOT DETECTED
== END 2022-12-22 10:00 | disposition home or self-care (01) ==
LOC: ED 08:20
DX: J40 Bronchitis, not specified as acute or chronic (principal); J32.9 Chronic sinusitis, unspecified; J02.9 Acute pharyngitis, unspecified; I10 Essential (primary) hypertension; F17.200 Nicotine dependence, unspecified, uncomplicated; Z20.822 Contact with and (suspected) exposure to COVID-19
CPT/HCPCS: 71045; 87070; 87430; 87633; 99284; A9270; J7512

== ENCOUNTER 2023-03-11 22:29 | Outpatient (CLI) | payer MEDICAID | END 2023-03-11 23:59 | disposition critical access hospital (66) | LOC: EMS 22:29 | DX: R06.00 Dyspnea, unspecified (principal); R23.2 Flushing; L29.9 Pruritus, unspecified; T63.481A Toxic effect of venom of other arthropod, accidental (unintentional), initial encounter | CPT/HCPCS: A0425; A0427; A0999 ==